=== PATIENT | female | born 1970 | race Caucasian/White ===

== ENCOUNTER 2018-08-12 18:00 | Emergency (ER) | payer OTHER ==
[2018-08-12] MEDS ORDERED: ACETAMINOPHEN 325 MG TABLET PO ONE (19:23)
[2018-08-12] MEDS ORDERED: IBUPROFEN 600 MG TABLET PO ONE (19:23)
[2018-08-12] MEDS ORDERED: LIDOCAINE 5% (700 MG) TRANSDERMAL ADH..PATCH TP ONE (19:24)
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
[2018-08-12 20:38] VITALS: BP 117/67
== END 2018-08-12 20:41 | disposition home or self-care (01) ==
LOC: ER 18:00
DX: S60.211A Contusion of right wrist, initial encounter (principal); S80.212A Abrasion, left knee, initial encounter; S80.211A Abrasion, right knee, initial encounter; M79.641 Pain in right hand; M25.561 Pain in right knee; M25.562 Pain in left knee; F17.200 Nicotine dependence, unspecified, uncomplicated
CPT/HCPCS: 99283